=== PATIENT | female | born 1955 | race Caucasian/White ===

== ENCOUNTER 2018-02-02 16:35 | Emergency (ER) | payer OTHER ==
[~2018-02-02] VITALS: Ht 167.6 cm; Wt 82.6 kg
[~2018-02-02 16:35] MED LIST: LEVO88TA6 PO
[2018-02-02 19:07] VITALS: BP 130/70
[2018-02-02] MEDS ORDERED: ONDANSETRON ODT 4 MG ONE (19:07)
[2018-02-02] MEDS ORDERED: OXYcodone/APAP 5/325MG TABLET ONE (19:07)
[2018-02-02] MEDS ORDERED: CYCLOBENZAPRINE 10 MG TABLET ONE (19:13)
[2018-02-02] MEDS ORDERED: ONDANSETRON ODT 4 MG PO ONE (19:30)
[2018-02-02] MEDS ORDERED: OXYcodone/APAP 5/325MG TABLET PO ONE (19:30)
[2018-02-02] MEDS ORDERED: CYCLOBENZAPRINE 10 MG TABLET PO ONE (19:30)
== END 2018-02-02 19:21 | disposition home or self-care (01) ==
LOC: ED 19:15
DX: S39.012A Strain of muscle, fascia and tendon of lower back, initial encounter (principal); W01.0XXA Fall on same level from slipping, tripping and stumbling without subsequent striking against object, initial encounter; Y93.89 Activity, other specified; Y92.89 Other specified places as the place of occurrence of the external cause; Y99.8 Other external cause status; E03.9 Hypothyroidism, unspecified
CPT/HCPCS: 72110; 99284; J7512; Q0162